=== PATIENT | female | born 1955 | race African-American/Black ===

== ENCOUNTER 2016-10-30 08:35 | Day surgery (SDC) | payer OTHER ==
[2016-10-25 17:24] VITALS: BMI 25.8
[2016-10-30] MEDS ORDERED: ONDANSETRON 4 MG/2 ML VIAL IVPUSH PRN (10:03)
[2016-10-30] MEDS ORDERED: PROMETHAZINE HCL 25 MG/1 ML VIAL IVPUSH PRN (10:03)
[2016-10-30] MEDS ORDERED: MIDAZOLAM HCL 2 MG/2 ML SINGLE DOSE VIAL ONE (10:14)
[2016-10-30] MEDS ORDERED: PROPOFOL 20 ML ONE ×3 (10:15)
[2016-10-30] MEDS ORDERED: LIDOCAINE HCL 1%, 10 MG/ML (20ML VIAL) ONE (10:15)
[2016-10-30] MEDS ORDERED: LACTATED RINGERS SOLUTION 1,000 ML IV SCH (10:15)
[2016-10-30] MEDS ORDERED: LIDOCAINE HCL/PF 2% SDV 5ML VIAL ONE (10:15)
--- NOTE | 2016-10-30 10:22 | OP ---
Operative Note - Note: Operative Date: 10/30/16 Pre-Operative Diagnosis: urge incontinence Operation: Replacement of interstim battery Implants: Interstim battery replacement Post-Operative Diagnosis: Same as Pre-op Surgeon: Louis Ryan MD. Anesthesia: MAC
[2016-10-30] MEDS ORDERED: ceFAZolin SODIUM 1 GM VIAL ONE (10:31)
[2016-10-30] MEDS ORDERED: ceFAZolin SODIUM 1 GM VIAL IVPB ONE (10:46)
[2016-10-30 13:09] VITALS: TEMP 97.9
--- NOTE | 2016-10-30 13:51 | OP ---
DATE OF OPERATION: 10/30/2016 PREOPERATIVE DIAGNOSIS: Urge incontinence. POSTOPERATIVE DIAGNOSIS: Urge incontinence. PROCEDURE: Replacement of InterStim battery. HISTORY: This is a 61-year-old female with a long history of urge incontinence, who approximately 4 years ago, had InterStim placement and has been quite successful in controlling her urge incontinence. Recently, however, the device seemed to have not worked. It was determined preoperatively that the battery was no longer functioning and needed to be replaced. All treatment options were discussed with the patient. Risks and benefits of treatment were discussed in detail. All questions were answered. BRIEF OPERATIVE NOTE: Patient brought into the operating room, placed in the prone position. Once sedation was administered, the patient was prepped and draped in standard sterile fashion. Intravenous antibiotics were given. At this time, an incision was made, excising the previous scar in elliptical fashion. The subcutaneous tissue was dissected over the level of the capsule formation around the battery device. At this time, the capsule was opened. The battery was delivered into the field. Using a wrench, the battery was loosened from the lead. The lead was tested and found to be in excellent working order at all 4 points. At this time, a new battery device was placed and initialized and was found to be working well. The wound was irrigated with copious amounts of saline irrigation. The patient had been given intravenous Ancef as well. At this time, the lead was secured in normal fashion and was put into the same pocket. The subcutaneous tissue was closed using interrupted 2-0 Vicryl. Skin was closed using 3-0 Monocryl. A dry sterile occlusive dressing was applied. The patient was brought to recovery room in stable and satisfactory condition. Nikolas [id number]
[2016-10-30 14:25] VITALS: BP 135/81; PULSE 54
--- NOTE | 2016-10-31 14:38 | PATH ---
Surgical Pathology Report Patient Name: THEODORE SERRA Med. Rec. #: [id number] /Age/Gender: 1955 (Age: 61) / F Account: [id number] Location: [facility] SURGICAL Taken: 10/30/2016 Received: 10/30/2016 Reported: 10/31/2016 Physicians: Louis Ryan M.D. Specimen(s) Received INTERSTIM BATTERY Clinical History Urge incontinence Final Diagnosis INTERSTIM BATTERY, REPLACEMENT: GROUND EQUIPMENT MECHANIC (GROSS EXAM). Electronically Signed Manpreet Frausto M.D. Gross Description Received fresh labeled "neurostimulatory battery" is a 5.0 x 4.3 x 0.7 cm flores metallic device, consistent with a battery. The specimen has the following inscription: "[employer] InterStim II SN [id number]." No soft tissue is present. No sections are submitted, gross only. /10/30/2016 saudi10/30/2016
== END 2016-10-30 15:00 | disposition home or self-care (01) ==
LOC: JASU-SURG 08:35
PROVIDERS: ATTEND Urology
PROC: 0JH70BZ Insertion of Single Array Stimulator Generator into Back Subcutaneous Tissue and Fascia, Open Approach (ICD-10-PCS; 2016-10-30)
PROC: 0JPT0MZ Removal of Stimulator Generator from Trunk Subcutaneous Tissue and Fascia, Open Approach (ICD-10-PCS; principal; 2016-10-30 10:00)
DX: N39.41 Urge incontinence (principal)
CPT/HCPCS: 64590; C1767; 76000-TC; 88300-TC; 94760

== ENCOUNTER 2020-05-05 04:16 | Day surgery (SDC) | payer OTHER ==
[2020-05-02 13:00] VITALS: BMI 25.8
[2020-05-05] MEDS ORDERED: KETAMINE HCL 200 MG/20 ML VIAL ONE (06:45)
[2020-05-05] MEDS ORDERED: ROCURONIUM BROMIDE 50 MG/5 ML SYRINGE ONE (06:45)
[2020-05-05] MEDS ORDERED: SUCCINYLCHOLINE CHLORIDE 200 MG/10 ML SYRINGE ONE (06:45)
[2020-05-05] MEDS ORDERED: NEOSTIGMINE METHYLSULFATE 0.5 MG/ML - 10 ML MDV ONE ×2 (06:46)
[2020-05-05] MEDS ORDERED: EPHEDRINE SULFATE/0.9% NACL/PF 50 MG/10 ML SYRINGE NR ONE (06:46)
[2020-05-05] MEDS ORDERED: PROPOFOL 20 ML ONE ×4 (06:47)
[2020-05-05] MEDS ORDERED: LIDOCAINE HCL 1%, 10 MG/ML (20ML VIAL) ONE (07:21)
[2020-05-05] MEDS ORDERED: BACITRACIN 15 GM TUBE TOPICAL OINTMENT ONE (07:21)
[2020-05-05] MEDS ORDERED: ceFAZolin 2 GRAM PREMIX BAG IVPB ONE (07:45)
[2020-05-05] MEDS ORDERED: ceFAZolin SODIUM 1 GM VIAL ONE (08:00)
[2020-05-05] MEDS ORDERED: LIDOCAINE HCL/PF 2% SDV 5ML VIAL ONE (08:00)
[2020-05-05] MEDS ORDERED: ACETAMINOPHEN INJECTION 100 ML IVPB ONE (08:00)
[2020-05-05] MEDS ORDERED: LIDOCAINE HCL 1% PRESERVATIVE FREE - 30ML VIAL IJ ONE ×2 (08:09)
[2020-05-05] MEDS ORDERED: LIDOCAINE HCL/PF 1% SDV 5ML VIAL ONE (08:12)
[2020-05-05] MEDS ORDERED: LIDOCAINE HCL 2% 100 MG/5 ML DISP.SYRIN NR ONE (08:14)
[2020-05-05] MEDS ORDERED: oxyCODONE HCL 5 MG TABLET PO PRN (09:08)
[2020-05-05] MEDS ORDERED: DEXTROSE 5%-0.45% SALINE 1,000 ML IV SCH (09:15)
[2020-05-05 10:52] VITALS: PULSE 54
[2020-05-05] MEDS ORDERED: ONDANSETRON *ODT* 4 MG TABLET ONE (11:30)
[2020-05-05] MEDS ORDERED: ONDANSETRON 4 MG TABLET PO ONE (11:45)
[2020-05-05 11:56] VITALS: BP 134/72; TEMP 97.7
[2020-05-05] MEDS ORDERED: ONDANSETRON 4 MG/2 ML VIAL IVPUSH PRN (14:02)
== END 2020-05-05 12:50 | disposition home or self-care (01) ==
LOC: JASU-SURG 04:16
PROVIDERS: ATTEND Urology
PROC: 0JH70MZ Insertion of Stimulator Generator into Back Subcutaneous Tissue and Fascia, Open Approach (ICD-10-PCS; 2020-05-05)
PROC: 01PY0MZ Removal of Neurostimulator Lead from Peripheral Nerve, Open Approach (ICD-10-PCS; 2020-05-05)
PROC: 01HY0MZ Insertion of Neurostimulator Lead into Peripheral Nerve, Open Approach (ICD-10-PCS; 2020-05-05)
PROC: 0JPT0MZ Removal of Stimulator Generator from Trunk Subcutaneous Tissue and Fascia, Open Approach (ICD-10-PCS; principal; 2020-05-05 07:30)
DX: N32.81 Overactive bladder (principal); R35.0 Frequency of micturition; N39.41 Urge incontinence
CPT/HCPCS: 64581; 64590; C1778; L8679; 76000-TC-FY; 94760; J0131; Q0162